=== PATIENT | female | born 1955 | race Caucasian/White ===

== ENCOUNTER 2019-11-12 00:53 | Day surgery (SDC) | payer OTHER, SELFPAY ==
[2019-11-10 12:54] VITALS: BMI 22.4
[2019-11-12 07:24] VITALS: BP 105/51; PULSE 71; RESP 18; TEMP 36.1; O2SAT 98; BMI 22.9
[2019-11-12] MEDS: LACTATED RINGERS 1,000 ML 150 ML IV CONT (07:43)
--- NOTE | 2019-11-12 08:04 | WPDGICN ---
Assessment and Plan Additional Plan This is a 64-year-old white female patient seen in evaluation at the request of Gricel HILARIO. Patient complains of difficulty swallowing for many year. she notes that pills Will hang up in her throat. She states that the sensation of a pill remains even when pills are not present. She has no difficulty swallowing food. Past medical history is significant for acid reflux for many years. Current we she takes omeprazole with good relief of symptoms. She denies any weight loss. She denies bleeding. Family history is noncontributory . Current medications include omeprazole 40 mg p.o. b.i.d.. Allergies are reported to codeine. Physical exam reveals patient to be oriented 3. HEENT unremarkable. Lungs are clear to auscultation and percussion. Heart is without murmur or extra sounds. Abdominal exam bowel sounds are present soft nontender with No organomegaly. Digital external rectal exam deferred Impression 1. Dysphagia. This may represent globus phenomenon. Plan is for EGD today. Further recommendations after endoscopy. GI Consult Note Consult date/time: 11/12/19 08:04 HPI: Nicci Bajwa is a 64 year old female Meds Home Medications and Allergies Home Medications Medication Instructions Recorded Confirmed Type omeprazole 40 mg PO BID 11/10/19 11/10/19 History Allergies Allergy/AdvReac Type Severity Reaction Status Date / Time codeine Allergy Unknown HEART RACES Verified 11/12/19 07:22 Vital Signs Vital Signs - 24 hr 11/12/19 07:24 Temperature 36.1 C L Pulse Rate 71 Respiratory Rate 18 Blood Pressure 105/51 L Pulse Oximetry 98
--- NOTE | 2019-11-12 08:32 | P.PNAN_ITS ---
Anes - Initial Pre Proc Eval Procedure: Operation Date: 11/12/19 08:30 Proposed Procedures p Esophagogastroduodenoscopy - Pipe Osborn MD Date/Time: 11/12/19 08:32 Surgeon: Pipe Osborn MD Pre Op Diagnosis: Gerd/ Dysphagia Patient Data Age: 64 Gender: F Height: 5 ft 5 in Weight: 62.6 kg Last Vital Signs Temp 36.1 C L 11/12/19 07:24 Pulse 71 11/12/19 07:24 Resp 18 11/12/19 07:24 BP 105/51 L 11/12/19 07:24 Pulse Ox 98 11/12/19 07:24 Allergies Allergy/AdvReac Type Severity Reaction Status Date / Time codeine Allergy Unknown HEART RACES Verified 11/12/19 07:22 Home Medications Medication Instructions Recorded Confirmed Type omeprazole 40 mg PO BID 11/10/19 11/10/19 History Patient hx anesthesia problems: none Family hx anesthesia problems: none [facility] Past Medical History Medical History (Updated 11/12/19 @ 08:33 by Hi Pablo MD) Ex-smoker GERD (gastroesophageal reflux disease) Anes - Eval Final PreProcedure Day of Procedure 11/12/19 08:32 Patient weight: normal Heart: regular rate and rhythm Lungs: clear to auscultation Airway: Mallampati scale class II, special considerations and other (dentures) Neurological: alert and oriented Last oral intake: >/= 8 hours ASA classification: II Emergent: no Anesthesia type and monitoring: general GIVS and standard monitoring Informed Consent: The patient's anesthetic plan and its attendant risks and benefits were discussed with the patient/family/POA. Questions were solicited and answers provided to the satisfaction of the patient/family/POA.
[2019-11-12] MEDS: BENZOCAINE (*SP) 60 ML SPRAY CAN (HURRICAINE) 1 SPRAY MUCOUS MEM (08:43)
[2019-11-12 08:53] VITALS: BP 103/40; PULSE 74; RESP 18; O2SAT 97
[2019-11-12 09:03] VITALS: BP 100/49; PULSE 68; RESP 19; O2SAT 97
[2019-11-12 09:13] VITALS: BP 104/54; PULSE 68; RESP 20; O2SAT 97
== END 2019-11-12 09:39 | disposition home or self-care (01) ==
PROVIDERS: PCP Family Medicine; Visit Provider Internal Medicine Gastroenterology
PROC: 0DJ08ZZ Inspection of Upper Intestinal Tract, Via Natural or Artificial Opening Endoscopic (ICD-10-PCS; CPT 43235; principal; 2019-11-12 08:30)
DX: D13.0 Benign neoplasm of esophagus (principal); K44.9 Diaphragmatic hernia without obstruction or gangrene; K21.9 Gastro-esophageal reflux disease without esophagitis; Z87.891 Personal history of nicotine dependence; Z79.899 Other long term (current) drug therapy
CPT/HCPCS: 43235; 43450; J2704; J7120

== ENCOUNTER 2019-11-24 09:54 | Emergency (ER) | payer OTHER, SELFPAY ==
[2019-11-24 10:14] VITALS: BP 125/75; PULSE 82; RESP 18; TEMP 36.2; O2SAT 98
--- NOTE | 2019-11-24 10:23 | ED.GENADULT ---
HPI - General Adult General Chief complaint: Unspecified Stated complaint: Facial swelling Time Seen by Provider: 11/24/19 10:15 Source: patient Mode of arrival: ambulatory Limitations: no limitations History of Present Illness HPI narrative: Pt is a 64 y/o female who presents to the ED with c/o numbness and swelling to her lower lt lip that started 30-45 minutes ago. Pt notes that her lt cheek was swollen but it has resolved. She denies lip pain, trouble breathing, or trouble swallowing. Pt only takes Prilosec on a daily basis for her GERD and she did not take it this morning. She denies using new soaps, detergents, perfumes, lotions, or cleaning products. She states that she has seasonal allergies that are mild. Pt is a non-smoker/non-drinker. complaint: Lip swelling/numbness Onset (ago): minute(s) (30-45) Location: mouth (lip) and left (lower) Quality: other (swelling, numbness) Pain Consistency: constant Relieving factors: none Exacerbating factors: none Associated symptoms: denies other symptoms Related Data Home Medications Medication Instructions Recorded Confirmed omeprazole 40 mg PO BID 11/10/19 11/10/19 Allergies Allergy/AdvReac Type Severity Reaction Status Date / Time codeine Allergy Unknown HEART RACES Verified 11/12/19 07:22 Review of Systems Review of Systems: All systems reviewed & are unremarkable except as noted in HPI and below ENT: Reports lip swelling (lt lower) and Denies other (trouble swallowing, lip pain) Comments: Reports lt cheek swelling that has resolved Respiratory: Respiratory: Denies other (trouble breathing) Neurologic: Reports numbness (to lt lower lip) PMFSH Past Medical History Medical History (Updated 11/24/19 @ 12:18 by Holly Thorne MD) Arthritis Back injury Ex-smoker GERD (gastroesophageal reflux disease) Pneumonia Rectal polyp Surgical History Surgical History (Updated 11/24/19 @ 11:06 by Meme Somers) H/O tubal ligation Social History Social History (Updated 11/24/19 @ 11:06 by Meme Somers) Smoking status: Former smoker Gender identity (if verbalized by the patient): Female Exam Narrative: Exam Narrative: General appearance: Well-developed, well-nourished Skin: Normal color Head: Normocephalic, nontraumatic Eyes: Clear conjunctiva ENT: Oropharynx normal, ears normal, nose normal, swelling, nontender left side of lower lip. Oral exam showed no dental tenderness or decay. Neck: Supple, nontender Chest and respiratory: Airway patent, no respiratory distress, no accessory muscle use Heart: Regular rate/rhythm Abdomen: Soft, nontender, no organomegaly, quiet bowel sounds Vascular: Normal peripheral pulses, normal capillary refill. Musculoskeletal: Normal range of motion, nontender back Neurologic: Alert and oriented ?3, [employer] is normal as tested, no gross motor deficit Course Course Emergency Course: Unchanged Vital Signs Vital signs: Vital Signs Temperature 36.2 C L 11/24/19 10:14 Pulse Rate 82 11/24/19 10:14 Respiratory Rate 18 11/24/19 10:14 Blood Pressure 125/75 11/24/19 10:14 Pulse Oximetry 98 11/24/19 10:14 Temperature 36.2 C L 11/24/19 10:14 Pulse Rate 82 11/24/19 10:14 Respiratory Rate 18 11/24/19 10:14 Blood Pressure 125/75 11/24/19 10:14 Pulse Oximetry 98 11/24/19 10:14 Medical Decision Making MDM Narrative Medical decision making narrative: Acute allergic reaction is my concern. Vital Signs Vital Signs: Vital Signs Temperature 36.2 C L 11/24/19 10:14 Pulse Rate 82 11/24/19 10:14 Respiratory Rate 18 11/24/19 10:14 Blood Pressure 125/75 11/24/19 10:14 Pulse Oximetry 98 11/24/19 10:14
[2019-11-24] MEDS: EPINEPHrine HCL INJ 1 MG/ML AMPUL 0.3 MG IM (10:39)
[2019-11-24] MEDS: predniSONE 20 MG TABLET 60 MG PO (10:40)
[2019-11-24 12:38] VITALS: BP 123/62; PULSE 67; RESP 18; O2SAT 99
== END 2019-11-24 12:38 | disposition home or self-care (01) ==
PROVIDERS: Emergency Provider Emergency Medicine; PCP Family Medicine
DX: T78.3XXA Angioneurotic edema, initial encounter (principal); M19.90 Unspecified osteoarthritis, unspecified site; K21.9 Gastro-esophageal reflux disease without esophagitis
CPT/HCPCS: 96372; 99283; A9270; J0171; J7512

== ENCOUNTER 2021-03-05 11:40 | Outpatient (CLI) | payer MEDICARE, OTHER, SELFPAY ==
--- NOTE | ~2021-03-05 | XR_ITS ---
EXAMINATION:XR cervical spine 4-5V DATE: 03/05/2021 12:15 INDICATION: Neck pain TECHNIQUE: AP, lateral, lateral swimmers and odontoid views of the cervical spine are provided. COMPARISON: CT, 12/26/2014 FINDINGS: Alignment is normal. The odontoid is intact. No fracture is identified. The vertebral body heights are maintained. There is chronic moderate loss of intervertebral disc space height at C4-5, C 5-6, and C6-7. The odontoid is intact. There is moderate facet and uncovertebral joint osteoarthritis . Prevertebral soft tissues are normal. Questionable patchy opacity of the lungs may reflect atelecta sis. IMPRESSION: 1. Moderate cervical spondylosis without acute findings or significant interval change. Reviewed, dictated and finalized at location A.
== END 2021-03-05 11:41 | disposition home or self-care (01) ==
PROVIDERS: PCP Family Medicine; Visit Provider Physician Assistant
DX: M47.892 Other spondylosis, cervical region (principal)
CPT/HCPCS: 72050

== ENCOUNTER 2021-03-21 09:47 | Outpatient (CLI) | payer MEDICARE, OTHER, SELFPAY ==
--- NOTE | ~2021-03-21 | MR_ITS ---
EXAMINATION: MR cervical spine wo con DATE: 03/21/2021 10:47 INDICATION: Cervical disc disorder. TECHNIQUE: Magnetic resonance imaging (MRI) of the cervical spine was performed without intravenous c ontrast. Sequences included sagittal T2-weighted FSE, sagittal STIR FSE, sagittal T1-weighted FSE, ax ial MERGE, and axial T2-weighted FSE. COMPARISON: Cervical spine radiographs 03/05/2021 FINDINGS: There is 2 mm retrolisthesis of C3 on C4 and C4 on C5. There is 4 degrees dextrocurvature o f cervical spine. Vertebral body heights are normal. There is moderately decreased disc height from C 3-C4 through C6-C7 with endplate remodeling. The spinal cord signal intensity is normal. The followin g disc levels are specifically discussed: C2-C3: The disc does not extend beyond the endplate margin. There is mild left uncovertebral joint os teoarthritis. There is mild right and severe left facet joint osteoarthritis. There is mild left neur al foraminal stenosis. There is no central canal stenosis. C3-C4: The disc is bulging. There is mild right and severe left uncovertebral joint osteoarthritis. T here is moderate bilateral facet joint osteoarthritis. There is mild right and moderate left neural f oraminal stenosis. There is mild central canal stenosis with ventral indentation of the spinal cord. C4-C5: The disc is bulging. There is severe bilateral uncovertebral joint osteoarthritis. There is mi ld bilateral facet joint osteoarthritis. There is moderate bilateral neural foraminal stenosis. There is mild central canal stenosis. C5-C6: The disc is bulging. There is severe bilateral uncovertebral joint osteoarthritis. There is mi ld bilateral facet joint osteoarthritis. There is moderate right and mild left neural foraminal steno sis. There is mild central canal stenosis. C6-C7: The disc is bulging. There is moderate right and severe left uncovertebral joint osteoarthriti s. There is severe bilateral facet joint osteoarthritis. There is mild bilateral neural foraminal ifrah nosis. There is mild central canal stenosis. C7-T1: The disc does not extend beyond the endplate margin. There is no uncovertebral joint osteoarth ritis. There is moderate right and severe left facet joint osteoarthritis. There is mild bilateral ne ural foraminal stenosis. There is no central canal stenosis. IMPRESSION: 1. Moderate cervical spondylosis. Reviewed, dictated and finalized at location A.
== END 2021-03-21 09:48 | disposition home or self-care (01) ==
PROVIDERS: PCP Family Medicine; Visit Provider Family Medicine
DX: M50.00 Cervical disc disorder with myelopathy, unspecified cervical region (principal); M47.812 Spondylosis without myelopathy or radiculopathy, cervical region
CPT/HCPCS: 72141

== ENCOUNTER 2021-05-02 06:33 | Outpatient (CLI) | payer MEDICARE, OTHER, SELFPAY ==
--- NOTE | ~2021-05-02 | XR_ITS ---
EXAMINATION: XR scoliosis survey DATE: 05/02/2021 07:16 INDICATION: Lumbar scoliosis TECHNIQUE: Standing AP and lateral views of the entire spine were each obtained on 3 cephalad to caud al overlapping images. COMPARISON: None. FINDINGS: 14 degree thoracic levoscoliosis measured between T4-L1 and 12 degree dextroscoliosis measured betwee n L1 and S1. Sagittal alignment is normal. Chronic anterior wedging of T6 with 20% anterior vertebral body height loss. Additional chronic minimal anterior wedging at T7 and T8. Remaining vertebral body heights are normal. Severe cervical spondylosis. See cervical spine CT report dated 05/02/2021 and MR I dated 03/21/2021 for further detail. Multilevel moderate disc height loss with multiple small degener ative endplate osteophytes throughout the mid to upper spine decreasing to mild disc height loss in t he lower thoracic spine. Lumbar disc heights are relatively preserved. Mild lumbar facet osteoarthrit is. Atherosclerotic aorta. Lungs are clear with no focal airspace opacities, pulmonary edema, pleural effusion or pneumothorax. Cardiomediastinal silhouette is normal. Normal bowel gas pattern. IMPRESSION: 1. Mild S-shaped thoracolumbar scoliosis with severe cervical, moderate thoracic and mild lumbar spon dylosis. Reviewed, dictated and finalized at location A. IMPRESSION: 1. Mild S-shaped thoracolumbar scoliosis with severe cervical, moderate thoraci c and mild lumbar spondylosis.
--- NOTE | ~2021-05-02 | CT_ITS ---
EXAMINATION: CT cervical spine wo con DATE: 05/02/2021 07:00 INDICATION: Cervical spondylosis. TECHNIQUE: Computed tomography (CT) of the cervical spine was performed without intravenous contrast. Automated exposure control and iterative reconstruction technique were employed. The dose-length pro duct was 138.28 mGy-cm. COMPARISON: Cervical spine MRI 03/21/2021 FINDINGS: The lung apices demonstrate emphysema and mild scarring. There is 8 degrees dextrocurvature of cervical spine. There is 2 mm anterolisthesis of C7 on T1. Vertebral body heights are normal. The re is mildly decreased disc height at C2-C3, moderately decreased disc height from C3-C4 through C5-C 6, and severely decreased disc height at C6-C7 with endplate remodeling. The following disc levels ar e specifically discussed: C2-C3: There is mild bilateral uncovertebral joint osteoarthritis. There is mild right and severe lef t facet joint osteoarthritis. There is mild left neural foraminal stenosis. There is no central canal stenosis. C3-C4: There is mild right and severe left uncovertebral joint osteoarthritis. There is moderate bila teral facet joint osteoarthritis. There is mild bilateral neural foraminal stenosis. There is mild ce ntral canal stenosis. C4-C5: There is severe bilateral uncovertebral joint osteoarthritis. There is mild bilateral facet pat int osteoarthritis. There is moderate right and mild left neural foraminal stenosis. There is mild ce ntral canal stenosis. C5-C6: There is severe bilateral uncovertebral joint osteoarthritis. There is mild bilateral facet pat int osteoarthritis. There is moderate bilateral neural foraminal stenosis. There is mild central kalyani l stenosis. C6-C7: There is moderate right and severe left uncovertebral joint osteoarthritis. There is moderate right and severe left facet joint osteoarthritis. There is mild bilateral neural foraminal stenosis. There is mild central canal stenosis. C7-T1: There is no uncovertebral joint osteoarthritis. There is moderate right and mild left facet pat int osteoarthritis. There is no neural foraminal stenosis. There is no central canal stenosis. IMPRESSION: 1. Severe cervical spondylosis. Reviewed, dictated and finalized at location B.
== END 2021-05-02 06:34 | disposition home or self-care (01) ==
LOC: ANHIMG 06:35
PROVIDERS: PCP Family Medicine
DX: M47.12 Other spondylosis with myelopathy, cervical region (principal); M41.26 Other idiopathic scoliosis, lumbar region; M47.892 Other spondylosis, cervical region
CPT/HCPCS: 72082; 72125

== ENCOUNTER → 2021-10-05 03:45 | Outpatient (CLI) | payer MEDICARE, OTHER, SELFPAY ==
[2021-10-05 21:56] LABS: SARS-CoV-2 RNA PCR Negative
== END ==
PROVIDERS: PCP Family Medicine; Visit Provider Family Medicine
DX: Z20.822 Contact with and (suspected) exposure to COVID-19 (principal)
CPT/HCPCS: C9803; U0003; U0005

== ENCOUNTER 2022-02-20 08:03 | Outpatient (CLI) | payer MEDICARE, OTHER, SELFPAY ==
[2022-02-20 08:45] LABS: Basophils Absolute Auto 0.1 K/mm3 (0.0-0.1); Basophils Percent Auto 0.9 % (0.2-1.2); Eosinophils Absolute Auto 0.2 K/mm3 (0-0.3); Eosinophils Percent Auto 3.4 % (0-4.4); Hematocrit 44.3 % (37.0-47.0); Hemoglobin 14.5 g/dL (12.0-15.0); Immature Granulocyte Absolute 0.04 K/mm3 (0.00-0.031); Immature Granulocyte Percent A 0.7 % (0-0.5); Lymphocytes Absolute Auto 1.84 K/mm3 (0.9-3.2); Lymphocytes Percent Auto 34.3 % (18.3-44.2); Mean Corpuscular HGB Conc 32.7 g/dl (32-36); Mean Corpuscular Hemoglobin 31.7 pg (26-34); Mean Corpuscular Volume 96.7 fl (80-100); Mean Platelet Volume 9.7 fl (7.4-10.4); Monocytes Absolute Auto 0.4 K/mm3 (0.1-0.6); Monocytes Percent Auto 8.2 % (2.6-8.5); Neutrophils Absolute Auto 2.8 K/mm3 (1.3-6.7); Neutrophils Percent Auto 52.5 % (45.5-73.1); Platelet Count Result 284 k/mm3 (150-375); Red Blood Count 4.58 M/mm3 (4.2-5.4); Red Cell Distribution Width 12.7 % (11.5-14.5); White Blood Count 5.4 K/mm3 (4.5-10.0)
[2022-02-20 09:12] LABS: Alanine Aminotransferase 41 U/L (6-35); Albumin Level 4.5 g/dL (3.5-5.1); Alkaline Phosphatase 64 U/L (38-126); Anion Gap 6 mmol/L (8-16); Aspartate Amino Transferase 41 U/L (14-36); Bilirubin,Total 0.6 mg/dL (0.2-1.3); Blood Urea Nitrogen 12 mg/dL (7-17); Calcium 9.1 mg/dL (8.4-10.2); Carbon Dioxide 27 mmol/L (22-30); Chloride 108 mmol/L (98-107); Estimated Glomerular Filt Rate 55; Glucose 104 mg/dL (65-110); Potassium 4.6 mmol/L (3.4-5.0); Sodium 141 mmol/L (137-145)
[2022-02-20 10:04] LABS: Folic Acid 10.4 ng/mL (2.76->20)
== END 2022-02-20 08:04 | disposition home or self-care (01) ==
PROVIDERS: PCP Internal Medicine; Visit Provider Internal Medicine
DX: R49.0 Dysphonia (principal); R53.83 Other fatigue
CPT/HCPCS: 36415; 80053; 82607; 82746; 84443; 85025

== ENCOUNTER 2022-03-08 01:57 | Day surgery (SDC) | payer MEDICARE, OTHER, SELFPAY ==
[2022-02-25 13:25] VITALS: BMI 23.1
--- NOTE | 2022-03-08 13:11 | P.PNAN_ITS ---
Anes - Initial Pre Proc Eval Procedure: Operation Date: 03/08/22 14:00 Proposed Procedures p Esophagogastroduodenoscopy - Pipe Osborn MD Date/Time: 03/08/22 13:11 Surgeon: Pipe Osborn MD Pre Op Diagnosis: GERD Patient Data Age: 66 Gender: F Height: 1.65 m Weight: 63 kg Allergies Allergy/AdvReac Type Severity Reaction Status Date / Time codeine Allergy Unknown HEART RACES Verified 03/08/22 13:15 Home Medications Medication Instructions Recorded Confirmed Type esomeprazole magnesium 40 mg 40 mg PO DAILY #30 caps 02/18/22 02/25/22 Rx capsule,delayed release (Nexium) levothyroxine 50 mcg tablet 50 mcg PO DAILY #90 tabs 02/26/22 Rx Patient hx anesthesia problems: none Family hx anesthesia problems: none Results Review: All pre-operative results and documents have been reviewed as part of the pre- operative evaluation. [facility] Past Medical History Medical History (Updated 03/08/22 @ 13:34 by Casper Villarreal DO) Arthritis Back injury Ex-smoker GERD (gastroesophageal reflux disease) Pneumonia Rectal polyp Surgical History Surgical History H/O tubal ligation Social History Social History (Updated 02/18/22 @ 16:04 by Kimo Limon MA) Years smoked: 12 Smoking status: Former smoker Smoking end date: 09/15/09 Drinks per week: 4 Gender identity (if verbalized by the patient): Female Anes - Eval Final PreProcedure Day of Procedure 03/08/22 13:11 Patient weight: normal Heart: regular rate and rhythm Lungs: clear to auscultation Airway: Mallampati scale class II Neurological: alert and oriented Last oral intake: >/= 8 hours ASA classification: II Emergent: no Anesthetic plan: proceed Anesthesia type and monitoring: general GIVS and standard monitoring Results Review: All pre-operative results and documents have been reviewed as part of the pre- operative evaluation. Informed Consent: The patient's anesthetic plan and its attendant risks and benefits were discussed with the patient/family/POA. Questions were solicited and answers provided to the satisfaction of the patient/family/POA.
[2022-03-08 13:17] VITALS: BP 107/47; PULSE 63; RESP 16; TEMP 36.3; O2SAT 95
[2022-03-08] MEDS: LACTATED RINGERS 1,000 ML 150 ML IV CONT (13:23)
--- NOTE | 2022-03-08 13:55 | PM.IMHP ---
H&P: HPI History of Present Illness Date/Time: 03/08/22 13:55 Chief Complaint: Heartburn Narrative: this is a 66-year-old white female patient who presents complaining heartburn. She is scheduled for an EGD. Patient has a history of a lump in her throat. 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 She at that time she was also noted to have a hiatal hernia. Empirically her esophagus was dilated. She was referred to ENT. Polyp was followed conservatively. Patient reports that it spontaneously disappeared she. She no longer feels the lump in the throat. She does however complain of heartburn. She states that she takes esomeprazole 40mg p.o. daily. She feels good throughout the day but later in the evening particularly on reclining will have burning in her throat. She denies any difficulty swallowing. She has had no bleeding. No particular pain with swallowing food. She has tried acid reducing medicines on a twice a day basis and this failed to alleviate her symptoms. She is referred for EGD because of ongoing throat burning in the evening. She does state that she has burning throughout the day if she fails to take her PPI medicine in the morning. Patient denies any weight loss. An EGD will be performed today. Review of Systems Review of Systems: Review of systems noncontributory [facility] Past Medical History Medical History (Updated 03/08/22 @ 13:58 by Pipe Osborn MD) Arthritis Back injury Ex-smoker GERD (gastroesophageal reflux disease) Pneumonia Rectal polyp Surgical History Surgical History H/O tubal ligation Social History Social History (Updated 02/18/22 @ 16:04 by Kimo Limon MA) Years smoked: 12 Smoking status: Former smoker Smoking end date: 09/15/09 Drinks per week: 4 Gender identity (if verbalized by the patient): Female Meds Home Medications and Allergies Home Medications Medication Instructions Recorded Confirmed Type esomeprazole magnesium 40 mg 40 mg PO DAILY #30 caps 02/18/22 03/08/22 Rx capsule,delayed release (Nexium) levothyroxine 50 mcg tablet 50 mcg PO DAILY #90 tabs 02/26/22 03/08/22 Rx Allergies Allergy/AdvReac Type Severity Reaction Status Date / Time codeine Allergy Unknown HEART RACES Verified 03/08/22 13:15 Vital Signs Vital Signs - 24 hr 03/08/22 13:17 Temperature 97.4 F L Pulse Rate 63 Respiratory Rate 16 Blood Pressure 107/47 L Pulse Oximetry 95 Oxygen Delivery Room Air Exam Narrative: physical exam reveals patient to be alert. Vital signs stable. HEENT exam is unremarkable. Patient is anicteric. Lungs are clear to auscultation and percussion. Heart is without murmur or extra sounds. Abdomen bowel sounds present soft nontender with no organomegaly. Assessment and Plan Assessment and plan (1) Heartburn: Code(s): R12 - Heartburn Status: Acute Assessment and Plan: Patient complains of throat burning on reclining and night felt to be consistent with heartburn. This appears to improve with Nexium taken in the morning but symptoms recur in the evening in the evening symptoms are not controlled with additional acid reducing medicines. Patient does have a history of a cricopharyngeal polyp. And a hiatal hernia. [place] to have underlying acid reflux disease empirically. Plan is for follow-up EGD given her ongoing discomfort. Further recommendations will be given after endoscopy.
[2022-03-08 14:13] VITALS: BP 94/50; PULSE 51; RESP 16; O2SAT 96
[2022-03-08 14:23] VITALS: BP 110/58; PULSE 62; RESP 24; O2SAT 96
[2022-03-08 14:33] VITALS: BP 111/64; PULSE 59; RESP 23; O2SAT 96
== END 2022-03-08 14:39 | disposition home or self-care (01) ==
PROVIDERS: PCP Internal Medicine; Visit Provider Internal Medicine Gastroenterology
PROC: 0DJ08ZZ Inspection of Upper Intestinal Tract, Via Natural or Artificial Opening Endoscopic (ICD-10-PCS; CPT 43235; principal; 2022-03-08 14:00)
DX: R12 Heartburn (principal); E03.9 Hypothyroidism, unspecified; Z87.891 Personal history of nicotine dependence; M19.90 Unspecified osteoarthritis, unspecified site; K21.9 Gastro-esophageal reflux disease without esophagitis
CPT/HCPCS: 43235; J2704; J7120

== ENCOUNTER 2022-07-02 16:37 | Outpatient (CLI) | payer MEDICARE, OTHER, SELFPAY ==
--- NOTE | ~2022-07-02 | MR_ITS ---
EXAMINATION: MR thoracic spine wo con DATE: 07/02/2022 17:24 INDICATION: Thoracic back pain. TECHNIQUE: Magnetic resonance imaging (MRI) of the thoracic spine was performed without intravenous c ontrast. COMPARISON: None FINDINGS: There is 12 degrees levoscoliosis of thoracic spine. There is kyphosis of thoracic spine. T here is mild chronic anterior wedging of T5-T9 vertebral bodies. There are Schmorl's nodes at multipl e levels. There is mildly decreased disc height at many levels. There is moderately decreased disc he ight from T5-T6 through T8-T9. There is multilevel facet joint osteoarthritis, severe on the left at T3-T4 and T4-T5. On the right, there is mild neural foraminal stenosis at T1-T2 and T2-T3. On the lef t, there is mild neural foraminal stenosis at T1-T2, T2-T3, T3-T4, and T4-T5. At T2-T3, there is a le ft central extrusion with mild central canal stenosis. At T7-T8, there is a left central protrusion w ith mild central canal stenosis. The spinal cord signal intensity is normal. The conus medullaris is at L1. IMPRESSION: 1. Moderate thoracic spondylosis. 2. Thoracic kyphosis and levoscoliosis. Reviewed, dictated and finalized at location B.
== END 2022-07-02 16:38 | disposition home or self-care (01) ==
LOC: ANHIMG 16:40
PROVIDERS: PCP Internal Medicine; Visit Provider Nurse Practitioner Family
DX: R49.0 Dysphonia (principal); E03.9 Hypothyroidism, unspecified; M47.894 Other spondylosis, thoracic region
CPT/HCPCS: 36415; 72146; 84439; 84443

== ENCOUNTER 2022-07-03 09:13 | Outpatient (CLI) | payer MEDICARE, OTHER, SELFPAY ==
--- NOTE | 2022-07-23 20:47 | WPDSLEEPSTUD ---
Sleep Study Date of Study: 07/03/22 Ordering Provider: Romeo Fenton DO Interpreting Physician: Yelena Langston DO Sleep Study Type: Polysomnogram Height: 1.65 m Weight: 61.235 kg Body Mass Index: 22.4 Neck Circumference (inches): 14.5 [place]: 5 Reason for Sleep Study Daytime hypersomnia Sleep History The patient is a 67-year-old female with arthritis, GERD and history of tobacco use that had a sleep study ordered for evaluation of daytime hypersomnia. The patient rarely awakens from sleep short of breath. She occasionally awakens at night with heartburn, belching or cough. She occasionally snores but it is rarely loud enough that others complain. She frequently has trouble sleeping when she has a cold. She denies waking up gasping for air throughout the night. She occasionally has breathing problems at night observed by herself or others. She occasionally sweats excessively at night. She rarely has heart palpitations or irregular heartbeats during the night. She occasionally falls asleep during the day but never while driving. The patient denies sleep paralysis, cataplexy and hypnagogic / hypnopompic hallucinations. She denies having trouble at school or work due to sleepiness. She occasionally has nightmares and occasionally remembers her dreams. She frequently has thoughts racing through her mind. She rarely feels sad or depressed. She occasionally has anxiety. She occasionally has muscular tension. She rarely notices parts of her body jerk. She frequently has crawling and aching feelings in her legs as well as leg pain during the night. She denies grinding her teeth during sleep and awakening with morning jaw pain. She is frequently bothered by pain during the day and occasionally awakened by pain during the night. She frequently wakes up feeling stiff in the morning. She frequently wakes up with sore or achy muscles. She frequently wakes up with pain in the neck, spine and other joints. She goes to bed between 9-9:30 on weekdays in around 10:00 p.m. on the weekends. He can take up to an hour to fall asleep. She wakes up several times throughout the night. If she is able to sleep for a few hours before waking up, she will be up for the rest of the night. When she awakens, she will sit in her recliner without watching television. She wakes up at 5 a.m. on weekdays and at 6:00 a.m. on weekends. He typically gets 2-3 hours of sleep per night. He will stay in bed for a few minutes after waking up in the morning. She currently lives with her . She does not consume any caffeinated beverages within 2 hours of bedtime. She does not engage in physical exercise before bedtime. He will read and watch television before falling asleep. She does not take naps in the afternoon or the evening. He drinks 2 cups of caffeinated beverage per day. She quit smoking cigarettes 12 years ago. She occasionally drinks alcohol. She denies recreational drug use. [facility] Past Medical History Medical History Arthritis Back injury Ex-smoker GERD (gastroesophageal reflux disease) Pneumonia Rectal polyp Surgical History Surgical History H/O tubal ligation Social History Social History Years smoked: 12 Smoking status: Former smoker Smoking end date: 09/15/09 Drinks per week: 4 Lack of Transportation: No Lack of Food: Never True Current Housing: I Have Housing Concerned About Future Housing: No Difficulty Paying Gas/Electric Bills: No Difficulty Paying for Meds: No Currently Unemployed: No Education: High School Diploma/GED Difficulty w/ Childcare or Family Care: No Gender identity (if verbalized by the patient): Female Medications Home Medications Medication Instructions Recorded Confirmed Type levothyro
[2022-07-23 21:01] VITALS: BMI 22.4
--- NOTE | 2022-08-26 15:15 | SLEEP ---
pt is does not wish to be on noc 02 for sleep.
== END 2022-07-04 06:23 | disposition home or self-care (01) ==
LOC: ANHCSM 09:14
PROVIDERS: PCP Internal Medicine; Visit Provider Internal Medicine
DX: G47.30 Sleep apnea, unspecified (principal); G47.61 Periodic limb movement disorder; G47.34 Idiopathic sleep related nonobstructive alveolar hypoventilation
CPT/HCPCS: 95810

== ENCOUNTER 2022-07-27 07:56 | Outpatient (CLI) | payer MEDICARE, OTHER, SELFPAY ==
--- NOTE | ~2022-07-27 | MM_ITS ---
EXAMINATION: MM screening cindy BI w hernan HISTORY: Screening TECHNIQUE: Craniocaudal and mediolateral oblique 3-D tomosynthesis images were obtained and synthetic 2-D images were generated. CAD analysis was submitted and interpreted. COMPARISON: Comparison to multiple prior studies sequentially, with oldest reviewed study dated 03/07. BREAST PARENCHYMAL COMPOSITION: Breast composed of scattered areas of fibroglandular density FINDINGS: There is no evidence of suspicious mass, calcification, or architectural distortion to sugg est malignancy in either breast. There has been no suspicious interval change. IMPRESSION: 1. No mammographic evidence of malignancy. 2. Recommend routine screening mammography in one year. BI-RADS Category 1: Negative Reviewed, dictated and finalized at location A. URETOR EXPERT
== END 2022-07-27 07:57 | disposition home or self-care (01) ==
PROVIDERS: PCP Internal Medicine; Visit Provider Internal Medicine
DX: Z12.31 Encounter for screening mammogram for malignant neoplasm of breast (principal)
CPT/HCPCS: 77063; 77067

== ENCOUNTER 2022-08-13 09:14 | Outpatient (CLI) | payer MEDICARE, OTHER, SELFPAY ==
--- NOTE | ~2022-08-13 | XR_ITS ---
EXAMINATION: XR chest 2V 08/13/2022 10:16 INDICATION: Cough. PROCEDURE: 2 view chest COMPARISON: 05/26/2012 FINDINGS: The lungs are clear. The cardiomediastinal silhouette is within normal limits. There are no pleural effusions. There is no pneumothorax suspected. The lungs are hyperinflated which is consistent with, but not diagnostic of chronic obstructive pulmo nary disease. IMPRESSION: 1: NO ACUTE CARDIOPULMONARY DISEASE. Reviewed, dictated and finalized at location A. ON REPAIRER
--- NOTE | 2022-08-14 09:37 | WPDPFTINT ---
PFT Procedure Performed PFT Procedure Performed Spirometry with Pre/Post Bronchodilator Plethysmography (Lung Vol) Diffusing Cap (DLCO) Flow Vol Loop PFT Interpretation Lung volumes were measured with the body plethysmography method. Lung volumes are unremarkable. Spirometry showed diminished expiratory flow rates and a diminished FEV1 to FVC ratio 44%, indicative of obstructive airway disease. Following administration of a bronchodilator there was no significant increase in expiratory flow rates. Lung diffusion capacity is severely reduced at 33% predicted. The flow volume loop is consistent with obstructive airway disease/emphysema. Impression: Moderate obstructive airway disease with no response to bronchodilators on this testing. Severely reduced lung diffusion capacity.
== END 2022-08-13 09:15 | disposition home or self-care (01) ==
PROVIDERS: PCP Internal Medicine; Visit Provider Internal Medicine
DX: R05.9 Cough, unspecified (principal); R06.00 Dyspnea, unspecified; J44.9 Chronic obstructive pulmonary disease, unspecified
CPT/HCPCS: 71046; 94060; 94726; 94729

== ENCOUNTER 2022-10-17 11:10 | Outpatient (CLI) | payer MEDICARE, OTHER, SELFPAY | END 2022-10-17 11:11 | disposition home or self-care (01) | PROVIDERS: PCP Internal Medicine; Visit Provider Internal Medicine Pulmonary Disease | DX: D64.9 Anemia, unspecified (principal) | CPT/HCPCS: 36415; 82728 ==

== ENCOUNTER 2024-05-18 07:59 | Outpatient (CLI) | payer MEDICARE, OTHER, SELFPAY ==
[2024-05-18 08:33] LABS: Hematocrit 43.4 % (37.0-47.0); Hemoglobin 14.8 g/dL (12.0-15.0); Mean Corpuscular HGB Conc 34.1 g/dl (32-36); Mean Corpuscular Hemoglobin 32.3 pg (26-34); Mean Corpuscular Volume 94.8 fl (80-100); Mean Platelet Volume 9.5 fl (7.4-10.4); Platelet Count Result 274 k/mm3 (150-375); Red Blood Count 4.58 M/mm3 (4.2-5.4); Red Cell Distribution Width 13.2 % (11.5-14.5); White Blood Count 4.8 K/mm3 (4.5-10.0)
[2024-05-18 08:50] LABS: Alanine Aminotransferase 32 U/L (6-35); Albumin Level 4.6 g/dL (3.5-5.1); Alkaline Phosphatase 58 U/L (38-126); Anion Gap 10 mmol/L (4-12); Aspartate Amino Transferase 33 U/L (14-36); Bilirubin,Total 0.9 mg/dL (0.2-1.3); Blood Urea Nitrogen 18 mg/dL (7-17); Calcium 9.1 mg/dL (8.4-10.2); Carbon Dioxide 24 mmol/L (22-30); Chloride 105 mmol/L (98-107); Cholesterol 189 mg/dL (0-200); Estimated Glomerular Filt Rate > 60; Glucose 118 mg/dL (65-110); HDL Direct 64 mg/dL; Potassium 4.3 mmol/L (3.4-5.0); Sodium 139 mmol/L (137-145); Triglycerides 95 mg/dL (<150)
[2024-05-18 09:01] LABS: LDL Cholesterol Direct 98 mg/dL
[2024-05-18 09:23] LABS: Appearance Urine Clear (Clear); Color Urine Light Yellow (Yellow); Glucose Urine UA Negative (Negative); Protein Urine Negative (Negative); Specific Grav Ur < 1.005 (1.010-1.020); pH Urine 5.5 (5.0-8.0)
[2024-05-18 09:24] LABS: Add Urine Microscopic? NO; Bilirubin Urine Negative (Negative); Blood Urine Negative (Negative); Ketones Urine Negative (Negative); Leukocyte Esterase Ur Negative (Negative); Nitrate Urine Negative (Negative); Urobilinogen Urine 0.2 mg/dL (0.2-1.0)
== END 2024-05-18 08:00 | disposition home or self-care (01) ==
LOC: ANHLAB 08:03
PROVIDERS: PCP Internal Medicine Geriatric Medicine; Visit Provider Internal Medicine Geriatric Medicine
DX: E55.9 Vitamin D deficiency, unspecified (principal); E03.9 Hypothyroidism, unspecified; E78.5 Hyperlipidemia, unspecified
CPT/HCPCS: 36415; 80053; 80061; 81003; 82306; 84436; 84443; 85027

== ENCOUNTER 2024-06-26 08:26 | Outpatient (CLI) | payer MEDICARE, OTHER, SELFPAY ==
[2024-06-26 10:22] LABS: Iron 115 ug/dL (37-170); Magnesium 2.2 mg/dL (1.6-2.3)
[2024-06-26 10:32] LABS: Percent Iron Saturation 35 % (20-50)
== END 2024-06-26 08:27 | disposition home or self-care (01) ==
PROVIDERS: PCP Internal Medicine Geriatric Medicine; Visit Provider Internal Medicine Geriatric Medicine
DX: D50.9 Iron deficiency anemia, unspecified (principal)
CPT/HCPCS: 36415; 83540; 83550; 83735